=== PATIENT | male | born 1990 | race Caucasian/White ===

== ENCOUNTER 2018-09-21 19:05 | Emergency (ER) | payer OTHER ==
[~2018-09-21] VITALS: Ht 185.4 cm; Wt 126.4 kg
[2018-09-21 19:16] VITALS: Ht 185.4 cm; Wt 126.4 kg
[2018-09-21] MEDS ORDERED: VOLTAREN75 MG PO (20:58)
[2018-09-21 21:25] VITALS: BP 136/84
== END 2018-09-21 21:26 | disposition home or self-care (01) ==
LOC: D.ER 19:05
DX: S89.92XA Unspecified injury of left lower leg, initial encounter (principal); W20.8XXA Other cause of strike by thrown, projected or falling object, initial encounter; Y93.89 Activity, other specified; Y92.019 Unspecified place in single-family (private) house as the place of occurrence of the external cause; M25.562 Pain in left knee